=== PATIENT | female | born 1965 | race Caucasian/White ===

== ENCOUNTER 2023-12-14 10:45 | Inpatient (IN) | payer BC ==
[~2023-12-14] VITALS: Ht 165.1 cm; Wt 91.0 kg
[2023-12-14 13:21] LABS: Basophils # (auto) 0 10 ^3/uL (0-0.2); Basophils % (auto) 0.7 % (0.0-2.0); Eosinophils # (auto) 0 10 ^3/uL (0-0.8); Eosinophils % (auto) 0.3 % (0.0-7.0); Hematocrit 43.1 % (36.0-46.0); Hemoglobin 14.7 g/dL (12.2-16.2); Lymphocytes # (auto) 2.2 10 ^3/uL (0.4-5.4); Lymphocytes % (auto) 29.3 % (10.0-50.0); Mean Corpuscular Hemoglobin 30.1 pg (28.0-32.0); Mean Corpuscular Hgb Conc. 34.2 g/dL (32.0-36.0); Mean Corpuscular Volume 88.1 fL (80.0-100.0); Monocytes # (auto) 0.3 10 ^3/uL (0-1.3); Monocytes % (auto) 4.3 % (0.0-12.0); Neutrophils # (auto) 4.8 10 ^3/uL (1.6-8.6); Neutrophils % (auto) 65.4 % (37.0-80.0); Platelet Count (auto) 243 10^3/uL (140-450); Red Blood Cells 4.89 10^6/uL (4.0-5.20); Red Cell Distribution Width 15.5 % (11.8-14.3); White Blood Cell 7.4 10^3/uL (4.4-10.8)
[2023-12-14 13:44] LABS: Alanine Aminotransferase 25 U/L (7-40); Albumin 4.7 g/dL (3.2-4.8); Alkaline Phosphatase 63 U/L (46-116); Anion Gap 6 (5-15); Aspartate Aminotransferase 16 U/L (13-40); BUN/Creatinine Ratio 17.1 (10.0-20.0); Bilirubin, Total 0.6 mg/dL (0.2-1.0); Blood Urea Nitrogen 12 mg/dL (9-23); Calcium 9.8 mg/dL (8.7-10.4); Carbon Dioxide 27 mmol/L (20-30); Chloride 106 mmol/L (98-107); Glucose 96 mg/dL (74-106); Potassium 4.3 mmol/L (3.5-5.1); Sodium 139 mmol/L (136-145)
[2023-12-14 14:14] LABS: Urine Bacteria None Seen /hpf (None Seen)
[2023-12-14] MEDS ORDERED: AMLO1TAB23 PO (14:15)
[2023-12-14] MEDS ORDERED: LOSA-534 PO (14:15)
[2023-12-14 14:43] LABS: Urine Blood Negative /uL (Negative); Urine Clarity Clear (Clear); Urine Color Light-Yellow (Yellow); Urine Protein, UAD Negative (Negative); Urine Specific Gravity 1.007 (1.001-1.035); Urine Urobilinogen Normal (Negative); Urine WBC <1 /hpf (0 - 5)
[2023-12-14] MEDS ORDERED: DOCUSATE SOD 100 MG CAP PO PRN (15:45)
[2023-12-14] MEDS ORDERED: MORPHINE SULFATE INJ 2 MG/ml SYRG IV PRN (15:45)
[2023-12-14] MEDS ORDERED: ACETAMINOPHEN 325 MG TAB PO PRN (15:45)
[2023-12-14] MEDS ORDERED: ONDANSETRON HCL 4 MG/2 ML VIAL IV PRN (15:45)
[2023-12-14] MEDS ORDERED: HYDROcodone-ACET 5/325MG TAB PO PRN (15:45)
[2023-12-14] MEDS ORDERED: hydrALAZINE HCL 20 MG/ML VL IV PRN (15:45)
[2023-12-14 16:33] VITALS: BP 139/84; PULSE 78; RESP 15; TEMP 98; O2SAT 97
[2023-12-14] MEDS: LOSARTAN POTASSIUM 50 MG TAB PO SCH (16:40)
[2023-12-14] MEDS ORDERED: SODIUM CHLOR 0.9% PF (SALINE LOCK) 10ML VIAL/SYR IV SCH (22:00)
[2023-12-15] MEDS ORDERED: ENOXAPARIN SOD 40 MG/0.4 ML SYRINGE SC SCH (10:00)
[2023-12-15] MEDS ORDERED: amLODIPine BESYLATE 5 MG TAB PO SCH (10:00)
== END 2023-12-14 19:22 | disposition home or self-care (01) | DRG 305 ==
LOC: ER 10:45 → OVERFLOW 15:38
PROVIDERS: ADMIT Internal Medicine; ATTEND Internal Medicine
DX: I16.0 Hypertensive urgency (principal); Z79.899 Other long term (current) drug therapy
CPT/HCPCS: 36415; 70450; 71045; 80053; 81001; 82962; 85025; 93005; G0378

== ENCOUNTER 2024-03-18 07:01 | Emergency (ER) | payer BC ==
[~2024-03-18] VITALS: Ht 165.1 cm; Wt 91.1 kg
[~2024-03-18 07:01] MED LIST: AMLO1TAB23 PO; LOSA-534 PO
[2024-03-18 07:33] VITALS: BP 129/69; PULSE 105; RESP 16; TEMP 100.6; O2SAT 95
[2024-03-18] MEDS ORDERED: SUMAtriptan SUCCINATE 6 MG/0.5 ML VL SC ONE (08:00)
[2024-03-18] MEDS ORDERED: cefTRIAXone SOD 1,000 MG VL IM ONE (08:00)
--- NOTE | 2024-03-18 08:00 | ED.PDOC ---
History of Present Illness HPI Comments A 58Y F WITH PMHX HLD PRESENTS TO ED FOR CHIEF COMPLAINT FLU LIKE SYMPTOMS X2DAYS. PT'S SYMPTOMS INCLUDE COUGH, CONGESTION, BODY ACHES, SORE THROAT, EAR PAIN, AND MIGRAINE. PT DENIES CHEST PAIN AND SOB. PATIENT IS ALERT, ORIENTED X 4, AND HAS STEADY GAIT. NO OTHER SYMPTOMS REPORTED AT THIS TIME OF CARE. Chief Complaint: Flu like Time Seen by MD: 07:41 Primary Care Provider: ROGELIO ANTONIO Reviewed Notes: Medications, Allergies Allergies: Coded Allergies: NO KNOWN ALLERGIES (Unverified , 10/01/11) Home Meds Active Scripts Sumatriptan Succinate (Imitrex) 50 Mg Tab, 1 TAB PO UD, #9 TAB 1 Refill Prov:OBINNA SNIDER 03/18/24 Promethazine-Dm (Promethazine Dm 6.25-15 mg/5Ml) 1 Mary Mary, 5 ML PO TID, #150 ML Prov:OBINNA SNIDER 03/18/24 Azithromycin (Azithromycin) 500 Mg Tab, 1 TAB PO DAILY, #5 TAB Prov:OBINNA SNIDER 03/18/24 Amlodipine Besylate (Amlodipine Besylate) 10 Mg Tab, 10 MG PO DAILY for 30 Days, #30 TAB Prov:CHARLIE ALCARAZ MD 12/14/23 Losartan Potassium (Losartan Potassium) 50 Mg Tab, 50 MG PO DAILY for 30 Days, #30 TAB Prov:CHARLIE ALCARAZ MD 12/14/23 Information Source: Patient Mode of Arrival: Ambulatory Severity: Mild Timing: Days Duration: Since onset Prehospital treatment: None Medication Refill: For: Other (COUG, RIGHT EAR PAIN AND THROAT PAIN ) Past Medical History PAST MEDICAL HISTORY: High Lipids Surgical History: Denies all surgeries 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 Family History Family History: Reviewed,noncontributory to illness, Unknown Social History Smoker: Non-Smoker Alcohol: Denies ETOH Use Drugs: Denies Drug Use Lives In: Home Constitutional: reports: others (BODY ACHES); denies: chills, diaphoresis, fatigue, fever, malaise, sweats, weakness EENTM: reports: ear pain, eye pain, nose congestion, throat pain, throat swelling; denies: blurred vision, double vision, ear bleeding, ear discharge, ear drainage, ear ringing, eye redness, hearing loss, mouth pain, mouth swelling, nasal discharge, nose bleeding, nose pain, photophobia, tearing, voice changes, others Respiratory: reports: cough; denies: hemoptysis, orthopnea, SOB at rest, shortness of breath, SOB with excertion, stridor, wheezing, others Cardiovascular: denies: chest pain, dizzy spells, diaphoresis, Dyspnea on exertion, edema, irregular heart beat, left arm pain, lightheadedness, palp itations, PND, syncope, others Gastrointestinal: denies: abdomen distended, abdominal pain, blood streaked bowels, constipated, diarrhea, dysphagia, difficulty swallowing, hematemesis, melena, nausea, poor appetite, poor fluid intake, rectal bleeding, rectal pain, vomiting, others Genitourinary: denies: abnormal vagina bleeding, burning, dyspareunia, dysuria, flank pain, frequency, hematuria, incontinence, pain, , vagina discharge, urgency, others Neurological: reports: headache; denies: dizziness, fainting, left sided numbness, left sided weakness, numbness, paresthesia, pre-existing deficit, right sided numbness, right sided weakness, seizure, speech problems, tingling, tremors, weakness, others Musculoskeletal: reports: muscle pain; denies: back pain, gout, joint pain, joint swelling, muscle stiffness, neck pain, others Integumetry: denies: bruises, change in color, change in hair/nails, dryness, laceration, lesions, lumps, rash, wounds, others Allergic/Immunocompromised: denies: Difficulty Healing, Frequent Infections, Hives, Itching, others Hematologic/Lymphatic: denies: anemia, blood clots, easy bleeding, easy bruising, swollen glands, others Endocrine: denies: excessive hunger, excessive sweating, excessive thirst, excessive urination, flushing, intolerance to cold, intolerance to heat, unexplained weight gain, unexplained weight loss, others Psychiatric: reports: anxiety; denies: bipolar disorder, depression, hopeless, panic disorder, schizophrenia, sleepless, suicidal, others All Other Systems: Reviewed and Negative Physical Exam General Appearance: No Apparent Distress, Obese, Other (ANXIOUS ) HEENT: PERRL/EOMI, Pharyngeal Erythema (TONSILLAR SWELLING, NO EXUDATES. ), TM Abnormal (R) (ERYTHEMA AND DULL WITH MILD EFFUSION OF RIGHT TM. ) Neck: Full Range of Motion, Non-Tender, Normal, Normal Inspection Respiratory: Chest Non-Tender, Expiration, No Accessory Muscle Use, No Respiratory Distress, Rhonchi Cardiovascular: No Edema, No JVD, No Murmur, No Gallop, Normal Peripheral Pu lses, Regular Rate/Rhythm Breast Exam: Deferred Gastrointestinal: No Organomegaly, Non Tender, No Pulsatile Mass, Normal Bowel Sounds, Soft Genitalia: Deferred Pelvic: Deferred Rectal: Deferred Extremities: No calf tenderness, Normal capillary refill, Normal inspection, Normal range of motion, Non-tender, No pedal edema Musculoskeletal : Apperance: Normal Neurologic: Alert, 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 Was a procedure done?: No Differential Dx Considerations may include: AOM OF RIGHT EAR, ACUTE TONSILLITIS, PNEUMONIA X-Ray, Labs, Meds, VS Vital Signs Date Time Temp Pulse Resp B/P (MAP) Pulse Ox O2 Delivery O2 Flow Rate FiO2 03/18/24 07:33 100.6 105 16 129/69 (89) 95 100.6 03/18/24 07:33 105 16 95 Room Air 03/18/24 07:21 100.6 105 16 129/69 (89) 95 Current Medications Medications (Trade) Dose Ordered Sig/Elvis Route Start Time Stop Time Status Last Admin Ceftriaxone Sodium 50 ml @ 100 mls/hr ONCE ONCE IV 03/18/24 08:00 03/18/24 08:23 DC 03/18/24 08:07 Ketorolac Tromethamine (Toradol Injection) 30 mg ONCE ONCE IV 03/18/24 08:00 03/18/24 08:01 DC 03/18/24 08:08 [place] [address] Ph: [phone] DIAGNOSTIC IMAGING Diagnostic Imaging Report : [id number] Signed PATIENT: MARTINEZ ROWLEY ACCT: [id number] UNIT: [id number] : 1965 LOC: ER ROOM / BED: / AGE / SEX: 58 / F ADM STATUS: REG ER SERVICE 6 ORDERING PHYSICIAN: OBINNA SNIDER PROCEDURE(s): CXR2 - CHEST TWO VIEWS ROUTINE REASON: COUGH ORDER NUMBER(s): [id number], ACCESSION NUMBER(s): [id number] CLINICAL INFORMATION: 58 years old, Female; COUGH. TECHNIQUE: Frontal and lateral chest radiographs were obtained. COMPARISON: Prior radiograph dated 12/14/2023. FINDINGS: Lungs: Opacities in the lung bases, right slightly greater than left, may be due to atelectasis and/or developing consolidation. Cardiac: Heart size is within normal limits. Pulmonary vasculature: Unremarkable Mediastinum/omar: Diyx-hr-[id number] atherosclerotic calcification of the aortic arch. Bones: No evidence of acute osseous abnormality. Other: No other significant finding. IMPRESSION: Bibasilar opacities, right greater than left, likely atelectasis and/ or developing consolidation in the appropriate clinical setting. ATED BY: CHRIS GRIFFIN DO DICTATED DATE/TIME: 03/18/24801 SIGNED BY: CHRIS GRIFFIN DO SIGNED DATE/TIME: 03/18/24801 CC: X-Ray, Labs, Meds, VS Comment COURSE: EXTERNAL MEDICAL RECORDS REVIEWED: [NONE] INDEPENDENT HISTORIANS: [NONE] SOCIAL DETERMINANTS OF HEALTH: [NONE] LABS ORDERED: NONE REVIEWED AND INTERPRETED RESULTS: NONE IMAGING ORDERED: CXR NORMAL CHEST X RAY RESULT: INTERPRETED BY ME. NO ACUTE FINDINGS. NO PNEUMONIA. NO CONSOLIDATIONS. NO INFILTRATES. PENDING RADIOLOGIST REPORT. TREATMENTS ORDERED: KETOROLAC INJ 30MG IV, CEFTRIAXONE IV PROCEDURES PERFORMED: NONE CRITICAL CARE TIME: NONE I HAVE DISCUSSED THE PATIENT WITH THE ATTENDING PHYSICIAN DR. SHERYL QUESADA AND HE AGREES WITH THE PATIENT'S PLAN OF CARE AND DISPOSITION. GIVEN THE HISTORY AND PRESENT ILLNESS OF THE PATIENT, AFTER REVIEWING LABS, IMAGING, AND COURSE OF TREATMENT ADMINISTERED DURING THEIR ED VISIT, THERE IS LOW SUSPICION FOR RED FLAG FINDINGS. BASED ON HISTORY OF PRESENT ILLNESS, AND PHYSICAL EXAM, PATIENT WILL BE DISCHARGED HOME. DISCUSSED PLAN FOR DISCHARGE HOME WITH RX. MEDICATION WARNINGS GIVEN. SHARED DECISION MAKING: DISCUSSED WITH PATIENT THAT THEIR WORKUP WAS NORMAL. PATIENT INSTRUCTED TO FOLLOW UP WITH PRIMARY CARE PROVIDER IN 1-2 DAYS FOR RE-EVALUATION OF SYMPTOMS. PATIENT VERBALIZES UNDERSTANDING TO RETURN TO ED FOR NEW OR WORSENING SYMPTOMS OR IF FOLLOW UP WITH PCP CANNOT BE OBTAINED. PATIENT FEELS COMFORTABLE GOING HOME AT THIS TIME. ALL QUESTIONS ADDRESSED AT TIME OF DISCHARGE. Time of 1ST Reevaluation: 08:30 Reevaluation 1ST: Improved Patient Education/Counseling: Diagnosis, Treatment, Need For Follow Up Family Education/Counseling: Diagnosis, Treatment, Need For Follow Up Medical Screening: No EMC Exist At This Time Departure 1 Departure Time of Disposition: 08:30 Impression: Primary Impression: Acute otitis media with effusion of right ear Additional Impressions: Acute tonsillitis Qualified Codes: J03.90 - Acute tonsillitis, unspecified Acute bronchitis Qualified Codes: J20.9 - Acute bronchitis, unspecified Disposition: 01 HOME / SELF CARE / HOMELESS Condition: Stable Additional Instructions: INSTRUCTIONS: FOLLOW-UP WITH PCP IN 1 TO 2 DAYS. TAKE MEDICATIONS PRESCRIBED. RETURN TO ED FOR ANY NEW OR WORSENING SYMPTOMS e-Prescriptions Levofloxacin Hemihydrate (LEVAQUIN 500 MG) 500 Mg Tab 1 TAB PO DAILY, #7 TAB Prov: OBINNA SNIDER 03/18/24 Sumatriptan Succinate (Imitrex) 50 Mg Tab 1 TAB PO UD, #9 TAB 1 Refill Prov: OBINNA SNIDER 03/18/24 Promethazine-Dm (Promethazine Dm 6.25-15 mg/5Ml) 1 Mary Mary 5 ML PO TID, #150 ML Prov: OBINNA SNDIER 03/18/24 Azithromycin (Azithromycin) 500 Mg Tab 1 TAB PO DAILY, #5 TAB Prov: OBINNA SNIDER 03/18/24 Discharged With: Self, Relative Critical Care Note Critical Care Time?: No Stability Stability form required: No Heart Score Heart Score: Heart Score Response (Comments) Value History N/A 0 EKG N/A 0 Age N/A 0 Risk Factors N/A 0 Troponin N/A 0 Total 0 I personally scribed for OBINNA SNIDER ([email or web address]) on 03/18/24 at 08:00. Electronically submitted by Susanne Serrano ([email or web address]). I personally scribed for OBINNA SNIDER ([email or web address]) on 03/18/24 at 08:11. Electronically submitted by Susanne Serrano ([facility]). I personally scribed for OBINNA SNIDER ([email or web address]) on 03/18/24 at 08:12. Electronically submitted by Susanne Serrano ([facility]). OBINNA SNIDER Mar 18, 2024 08:00
--- NOTE | 2024-03-18 08:05 | DVH ---
CLINICAL INFORMATION: 58 years old, Female; COUGH. TECHNIQUE: Frontal and lateral chest radiographs were obtained. COMPARISON: Prior radiograph dated 12/14/2023. FINDINGS: Lungs: Opacities in the lung bases, right slightly greater than left, may be due to atelectasis and/o r developing consolidation. Cardiac: Heart size is within normal limits. Pulmonary vasculature: Unremarkable Mediastinum/omar: [id number] atherosclerotic calcification of the aortic arch. Bones: No evidence of acute osseous abnormality. Other: No other significant finding. IMPRESSION: Bibasilar opacities, right greater than left, likely atelectasis and/ or developing consolidation in the appropriate clinical setting.
[2024-03-18] MEDS: cefTRIAXone 1GM/50ML D5W 50 ML IV ONE (08:07)
[2024-03-18] MEDS: KETOROLAC TROMETH 30 MG/ML 1ML VIAL IV ONE (08:08)
[2024-03-18] MEDS ORDERED: PROM1SOL4 PO (08:12)
[2024-03-18] MEDS ORDERED: SUMA50TA2 PO (08:12)
[2024-03-18] MEDS ORDERED: AZIT500T66 PO (08:12)
[2024-03-18] MEDS ORDERED: LEVO500T91 PO (08:28)
== END 2024-03-18 08:24 | disposition home or self-care (01) ==
LOC: ER 07:01
DX: H65.191 Other acute nonsuppurative otitis media, right ear (principal); J03.90 Acute tonsillitis, unspecified; E78.5 Hyperlipidemia, unspecified; J20.9 Acute bronchitis, unspecified; Z79.899 Other long term (current) drug therapy
CPT/HCPCS: 71046; 96365; 96375; 99284; J0696; J1885

== ENCOUNTER 2024-04-04 02:25 | Emergency (ER) | payer BC ==
[~2024-04-04] VITALS: Ht 165.1 cm; Wt 92.5 kg
[~2024-04-04 02:25] MED LIST changes: +AZIT500T66 PO; +LEVO500T91 PO; +PROM1SOL4 PO; +SUMA50TA2 PO
--- NOTE | 2024-04-04 04:07 | ED.PDOC ---
GI ASSESSMENT HPI Comments 58 year old female presents to the ED with a chief complaint of RUQ pain onset yesterday around 21:00. Patient states she was trying to sleep when she began experiencing RUQ pain, radiates to her back as well as nausea. PMHx of HLD. Denies vomiting, diarrhea, constipation, fever, chills, headache, chest pain, dizziness, shortness of breath. No other symptoms or modifying factors present at this time. Chief Complaint: Abdominal Pain Time Seen by MD: 03:46 Primary Care Provider: ROGELIO ANTONIO Reviewed Notes: Medications, Allergies Allergies: Coded Allergies: NO KNOWN ALLERGIES (Unverified , 10/01/11) Home Meds Active Scripts Gabapentin (Once-Daily) (Gabapentin) 300 Mg Tab, 300 MG PO Q6HP PRN for 7 Days, #28 TAB Prov:SRIDEVI TEJEDA MD 04/04/24 Ondansetron HCl (Ondansetron Hydrochloride) 8 Mg Tab, 8 MG PO Q6HP PRN for 7 Days, #28 TAB Prov:SRIDEVI TEJEDA MD 04/04/24 Levofloxacin Hemihydrate (LEVAQUIN 500 MG) 500 Mg Tab, 1 TAB PO DAILY, #7 TAB Prov:OBINNA SNIDER 03/18/24 Sumatriptan Succinate (Imitrex) 50 Mg Tab, 1 TAB PO UD, #9 TAB 1 Refill Prov:OBINNA SNIDER 03/18/24 Promethazine-Dm (Promethazine Dm 6.25-15 mg/5Ml) 1 Mary Mary, 5 ML PO TID, #150 ML Prov:OBINNA SNIDER 03/18/24 Azithromycin (Azithromycin) 500 Mg Tab, 1 TAB PO DAILY, #5 TAB Prov:OBINNA SNIDER 03/18/24 Amlodipine Besylate (Amlodipine Besylate) 10 Mg Tab, 10 MG PO DAILY for 30 Days, #30 TAB Prov:CHARLIE ALCARAZ MD 12/14/23 Losartan Potassium (Losartan Potassium) 50 Mg Tab, 50 MG PO DAILY for 30 Days, #30 TAB Prov:CHARLIE ALCARAZ MD 12/14/23 Information Source: Patient Mode of Arrival: Ambulatory Timing: Hours Duration: Since onset Prehospital treatment: None Quality: Sharp Vomitus: None Severity: Moderate Recent: None Recent Hx of: None Pain Location: RUQ Associated sign and symptoms: Nausea, Abdominal Pain (RUQ) Past Medical History PAST MEDICAL HISTORY: High Lipids Surgical History: Denies all surgeries 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 Family History Family History: Reviewed,noncontributory to illness, Unknown Social History Smoker: Non-Smoker Alcohol: Denies ETOH Use Drugs: Denies Drug Use Lives In: Home Constitutional: denies: chills, diaphoresis, fatigue, fever, malaise, sweats, weakness, others EENTM: denies: blurred vision, double vision, ear bleeding, ear discharge, ear drainage, ear pain, ear ringing, eye pain, eye redness, hearing loss, mouth pain, mouth swelling, nasal discharge, nose bleeding, nose congestion, nose pain, photophobia, tearing, throat pain, throat swelling, voice changes, others Respiratory: denies: cough, hemoptysis, orthopnea, SOB at rest, shortness of breath, SOB with excertion, stridor, wheezing, others Cardiovascular: denies: chest pain, dizzy spells, diaphoresis, Dyspnea on exertion, edema, irregular heart beat, left arm pain, lightheadedness, p alpitations, PND, syncope, others Gastrointestinal: reports: abdominal pain (RUQ), nausea; denies: abdomen distended, blood streaked bowels, constipated, diarrhea, dysphagia, difficulty swallowing, hematemesis, melena, poor appetite, poor fluid intake, rectal bleeding, rectal pain, vomiting, others Genitourinary: denies: abnormal vagina bleeding, burning, dyspareunia, dysuria, flank pain, frequency, hematuria, incontinence, pain, , vagina discharge, urgency, others Neurological: denies: dizziness, fainting, headache, left sided numbness, left sided weakness, numbness, paresthesia, pre-existing deficit, right sided numbness, right sided weakness, seizure, speech problems, tingling, tremors, weakness, others Musculoskeletal: reports: back pain; denies: gout, joint pain, joint swelling, muscle pain, muscle stiffness, neck pain, others Integumetry: denies: bruises, change in color, change in hair/nails, dryness, laceration, lesions, lumps, rash, wounds, others Allergic/Immunocompromised: denies: Difficulty Healing, Frequent Infections, Hives, Itching, others Hematologic/Lymphatic: denies: anemia, blood clots, easy bleeding, easy bruising, swollen glands, others Endocrine: denies: excessive hunger, excessive sweating, excessive thirst, excessive urination, flushing, intolerance to cold, intolerance to heat, unexplained weight gain, unexplained weight loss, others Psychiatric: denies: anxiety, bipolar disorder, depression, hopeless, panic disorder, schizophrenia, sleepless, suicidal, others All Other Systems: Reviewed and Negative Physical Exam General Appearance: Mild Distress, Normal HEENT: Normal ENT Inspection, Pharynx Normal, TMs Normal Neck: Full Range of Motion, Non-Tender, Normal, Normal Inspection Respiratory: Chest Non-Tender, Lungs Clear, No Accessory Muscle Use, No Respiratory Distress, Normal Breath Sounds Cardiovascular: No Edema, No JVD, No Murmur, No Gallop, Normal Peripheral Pulses, Regular Rate/Rhythm Breast Exam: Deferred Gastrointestinal: No Organomegaly, Non Tender, No Pulsatile Mass, Normal Bowel Sounds, Soft Genitalia: Deferred Pelvic: Deferred Rectal: Deferred Extremities: No calf tenderness, Normal capillary refill, Normal inspection, Normal range of motion, Non-tender, No pedal edema Musculoskeletal : Apperance: Normal Neurologic: Alert, guitar repairer 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 Was a procedure done?: No GI differential Dx Differential Diagnosis: Bowel Obstruction, Cholecystitis, Constipation, Diverticular disease, Gastritis/PUD, Gastroenteritis, Pancreatitis, Other X-Ray, Labs, Meds, VS Vital Signs Date Time Temp Pulse Resp B/P (MAP) Pulse Ox O2 Delivery O2 Flow Rate FiO2 04/04/24 08:06 97.8 73 20 146/93 (110) 96 97.8 04/04/24 04:41 97.7 70 18 156/96 (116) 97 97.7 04/04/24 04:41 70 18 97 Room Air 04/04/24 02:52 97.7 72 17 153/81 (105) 96 Lab Test 04/04/24 04:27 04/04/24 03:50 Range/Units White Blood Count 9.4 4.4-10.8 10^3/uL Red Blood Count 4.87 4.0-5.20 10^6/uL Hemoglobin 14.2 12.2-16.2 g/dL Hematocrit 42.8 36.0-46.0 % Mean Corpuscular Volume 87.9 80.0-100.0 fL Mean Corpuscular Hemoglobin 29.1 28.0-32.0 pg Mean Corpuscular Hemoglobin Concent 33.2 32.0-36.0 g/dL Red Cell Distribution Width 15.6 H 11.8-14.3 % Platelet Count 314 140-450 10^3/uL Mean Platelet Volume 7.9 6.9-10.8 fL Neutrophils (%) (Auto) 59.1 37.0-80.0 % Lymphocytes (%) (Auto) 31.6 10.0-50.0 % Monocytes (%) (Auto) 6.7 0.0-12.0 % Eosinophils (%) (Auto) 1.8 0.0-7.0 % Basophils (%) (Auto) 0.8 0.0-2.0 % Neutrophils # (Auto) 5.5 1.6-8.6 10 ^3/uL Lymphocytes # (Auto) 3.0 0.4-5.4 10 ^3/uL Monocytes # (Auto) 0.6 0-1.3 10 ^3/uL Eosinophils # (Auto) 0.2 0-0.8 10 ^3/uL Basophils # (Auto) 0.1 0-0.2 10 ^3/uL Nucleated Red Blood Cells 0.0 % Sodium Level 139 136-145 mmol/L Potassium Level 4.3 3.5-5.1 mmol/L Chloride Level 105 98-107 mmol/L Carbon Dioxide Level 28 20-31 mmol/L Anion Gap 6 5-15 Blood Urea Nitrogen 20 9-23 mg/dL Creatinine 0.79 0.550-1.02 mg/dL Glomerular Filtration Rate Calc 86 >90 mL/min BUN/Creatinine Ratio 25.3 H 10.0-20.0 Serum Glucose 110 H 74-106 mg/dL Calcium Level 10.6 H 8.7-10.4 mg/dL Total Bilirubin 0.6 0.2-1.0 mg/dL Aspartate Amino Transferase (AST) 16 13-40 U/L Alanine Aminotransferase (ALT) 26 7-40 U/L Alkaline Phosphatase 69 46-116 U/L Total Protein 6.8 5.7-8.2 g/dL Albumin 4.6 3.2-4.8 g/dL Lipase 38 12-53 U/L Urine Color Light-yellow Yellow Urine Clarity Clear Clear Urine pH 5.5 5.0-9.0 Urine Specific [place] 1.005 1.001-1.035 Urine Protein Negative Negative Urine Ketones Negative Negative Urine Blood Negative Negative /uL Urine Nitrite Negative Negative Urine Bilirubin Negative Negative Urine Urobilinogen Normal Negative mg/dL Urine Leukocyte Esterase Negative Negative /uL Urine RBC <1 0 - 4 /hpf Urine WBC 2 0 - 5 /hpf Urine Squamous Epithelial Cells None seen <5 /hpf Urine Bacteria None seen None Seen /hpf Urine Glucose Normal Normal mg/dL [place] [address] Ph: [phone] DIAGNOSTIC IMAGING Diagnostic Imaging Report : [id number] Signed PATIENT: MARTINEZ ROWLEY ACCT: [id number] UNIT: [id number] : 1965 LOC: ER ROOM / BED: / AGE / SEX: 58 / F ADM STATUS: REG ER SERVICE [id number] ORDERING PHYSICIAN: SRIDEVI TEJEDA MD PROCEDURE(s): ABPLIV - CT AB PEL WITH IV CON ONLY REASON: abd pain ORDER NUMBER(s): [id number], ACCESSION NUMBER(s): [id number] Exam: CT CT AB PEL WITH IV CON ONLY History: abd pain Comparison Study: None Technique: Multidetector spiral CT of the abdomen was performed from lung bases to pubic symphysis. Imaging was performed without IV contrast. Axial, coronal and sagittal multiplanar reformats were obtained from the axial data set by the technologist. Radiation Dose : 1. Abdomen/Pelvis: CTDIvol 24 mGy, DLP 1304.92 mGy*cm. Findings: Evaluation of solid organs is limited due to lack of intravenous contrast use. Lung Bases: No acute or significant lung base finding. Normal heart size. No pleural or pericardial effusion. Liver: Mild hepatic steatosis. Gallbladder and Biliary Tree: Unremarkable Spleen: Unremarkable Pancreas: The pancreas is grossly normal in appearance. Adrenal Glands: Unremarkable Kidneys: Kidneys are grossly normal without calculi or hydronephrosis. Bladder: Grossly unremarkable for degree of distention. Bowel: The stomach is grossly normal in appearance. Moderate colonic stool. Mild bowel wall thickening of the descending colon. Mild bowel wall thickening of the terminal ileum. The appendix is not visualized; however, no secondary findings of acute appendicitis identified. Ascites: Absent Lymphadenopathy: No mesenteric, retroperitoneal or periportal lymphadenopathy. Abdominal Wall and Mesentery: Unremarkable. Vasculature: The visualized abdominal aorta is normal in size and caliber. There is extensive atherosclerotic calcification of the aorta and its branches. Evaluation of abdominal and pelvic vessels is limited due to lack of intravenous contrast. Pelvic Organs: Unremarkable Musculoskeletal: No aggressive focal bony lesions, acute fractures or dislocat ion. IMPRESSION: Moderate volume colonic stool. Mild bowel wall thickening of the descending colon; possibly colitis. Mild bowel wall thickening of the terminal ileum which may be related to underdistention or may represent a component of inflammatory bowel disease. Clinical correlation advised. Radiation optimization: All CT scans at this facility use at least one of these dose optimization techniques: automated exposure control mA and/or kV adjustment per patient size (includes targeted exams where dose is matched to clinical indication) or iterative reconstruction. ATED BY: EMIL KINNEY MD DICTATED DATE/TIME: 04/04/24539 SIGNED BY: EMIL KINNEY MD SIGNED DATE/TIME: 04/04/24539 CC: Time of 1ST Reevaluation: 04:16 Reevaluation 1ST: Unchanged Time of 2ND Reevaluation: 06:01 Reevaluation 2ND: Improved Patient Education/Counseling: Diagnosis, Treatment, Prognosis Family Education/Counseling: No Family Present Additional Information I reviewed the following notes from patient's past medical encounters: The following tests were ordered, and results were reviewed by me: CBC, CMP, LIPASE, UA, CT AB PEL WITH IV CONTRAST, US GALLBLADDER I reviewed and agreed with the following test results read by other providers: CT AB PEL WITH IV CONTRAST, US GALLBLADDER I discussed treatment and results with medical personnel and: patient Departure 1 Departure Time of Disposition: 06:01 Impression: Primary Impression: Abdominal pain Disposition: HOME / SELF CARE / HOMELESS Condition: Stable e-Prescriptions Gabapentin (Once-Daily) (Gabapentin) 300 Mg Tab 300 MG PO Q6HP PRN for 7 Days, #28 TAB Prov: SRIDEVI TEJEDA MD 04/04/24 Ondansetron HCl (Ondansetron Hydrochloride) 8 Mg Tab 8 MG PO Q6HP PRN for 7 Days, #28 TAB Prov: SRIDEVI TEJEDA MD 04/04/24 Discharged With: Self Critical Care Note Critical Care Time?: No Stability Stability form required: No I personally scribed for SRIDEVI TEJEDA MD ([email or web address]) on 04/04/24 at 04:07. Electronically submitted by Brunilda Carlisle ([email or web address]). I personally scribed for SRIDEVI TEJEDA MD ([email or web address]) on 04/04/24 at 04:50. Electronically submitted by Brunilda Carlisle ([email or web address]). I personally scribed for SRIDEVI TEJEDA MD ([email or web address]) on 04/04/24 at 05:49. Electronically submitted by Brunilda Carlisle ([email or web address]). SRIDEVI TEJEDA MD Apr 04, 2024 04:07
[2024-04-04 04:19] LABS: Urine Bacteria None Seen /hpf (None Seen)
[2024-04-04 04:35] LABS: Urine Blood Negative /uL (Negative); Urine Clarity Clear (Clear); Urine Color Light-Yellow (Yellow); Urine Protein, UAD Negative (Negative); Urine Specific Gravity 1.005 (1.001-1.035); Urine Squamous Epithelial Cell None Seen /hpf (<5); Urine Urobilinogen Normal (Negative); Urine WBC 2 /hpf (0 - 5); Urine pH 5.5 (5.0-9.0)
[2024-04-04 04:50] LABS: Basophils # (auto) 0.1 10 ^3/uL (0-0.2); Basophils % (auto) 0.8 % (0.0-2.0); Eosinophils # (auto) 0.2 10 ^3/uL (0-0.8); Eosinophils % (auto) 1.8 % (0.0-7.0); Hematocrit 42.8 % (36.0-46.0); Hemoglobin 14.2 g/dL (12.2-16.2); Lymphocytes % (auto) 31.6 % (10.0-50.0); Mean Corpuscular Hemoglobin 29.1 pg (28.0-32.0); Mean Corpuscular Hgb Conc. 33.2 g/dL (32.0-36.0); Mean Corpuscular Volume 87.9 fL (80.0-100.0); Monocytes # (auto) 0.6 10 ^3/uL (0-1.3); Monocytes % (auto) 6.7 % (0.0-12.0); Neutrophils # (auto) 5.5 10 ^3/uL (1.6-8.6); Neutrophils % (auto) 59.1 % (37.0-80.0); Platelet Count (auto) 314 10^3/uL (140-450); Red Blood Cells 4.87 10^6/uL (4.0-5.20); Red Cell Distribution Width 15.6 % (11.8-14.3); White Blood Cell 9.4 10^3/uL (4.4-10.8)
[2024-04-04] MEDS: IOHEXOL 300 MG/ML 100ML BOTTLE IJ ONE (04:57)
[2024-04-04 05:00] LABS: Alanine Aminotransferase 26 U/L (7-40); Albumin 4.6 g/dL (3.2-4.8); Alkaline Phosphatase 69 U/L (46-116); Anion Gap 6 (5-15); Aspartate Aminotransferase 16 U/L (13-40); BUN/Creatinine Ratio 25.3 (10.0-20.0); Blood Urea Nitrogen 20 mg/dL (9-23); Carbon Dioxide 28 mmol/L (20-31); Chloride 105 mmol/L (98-107); Lipase 38 U/L (12-53); Potassium 4.3 mmol/L (3.5-5.1); Sodium 139 mmol/L (136-145)
[2024-04-04 05:01] LABS: Bilirubin, Total 0.6 mg/dL (0.2-1.0); Total Protein 6.8 g/dL (5.7-8.2)
[2024-04-04 05:10] LABS: Calcium 10.6 mg/dL (8.7-10.4); Glucose 110 mg/dL (74-106)
--- NOTE | 2024-04-04 05:44 | DVH ---
Exam: CT CT AB PEL WITH IV CON ONLY History: abd pain Comparison Study: None Technique: Multidetector spiral CT of the abdomen was performed from lung bases to pubic symphysis. Imaging was performed without IV contrast. Axial, coronal and sagittal multiplanar reformats were ob tained from the axial data set by the technologist. Radiation Dose : 1. Abdomen/Pelvis: CTDIvol 24 mGy, DLP 1304.92 mGy*cm. Findings: Evaluation of solid organs is limited due to lack of intravenous contrast use. Lung Bases: No acute or significant lung base finding. Normal heart size. No pleural or pericardial effusion. Liver: Mild hepatic steatosis. Gallbladder and Biliary Tree: Unremarkable Spleen: Unremarkable Pancreas: The pancreas is grossly normal in appearance. Adrenal Glands: Unremarkable Kidneys: Kidneys are grossly normal without calculi or hydronephrosis. Bladder: Grossly unremarkable for degree of distention. Bowel: The stomach is grossly normal in appearance. Moderate colonic stool. Mild bowel wall thickenin g of the descending colon. Mild bowel wall thickening of the terminal ileum. The appendix is not vis ualized; however, no secondary findings of acute appendicitis identified. Ascites: Absent Lymphadenopathy: No mesenteric, retroperitoneal or periportal lymphadenopathy. Abdominal Wall and Mesentery: Unremarkable. Vasculature: The visualized abdominal aorta is normal in size and caliber. There is extensive athero sclerotic calcification of the aorta and its branches. Evaluation of abdominal and pelvic vessels is limited due to lack of intravenous contrast. Pelvic Organs: Unremarkable Musculoskeletal: No aggressive focal bony lesions, acute fractures or dislocation. IMPRESSION: Moderate volume colonic stool. Mild bowel wall thickening of the descending colon; possibly colitis. Mild bowel wall thickening of the terminal ileum which may be related to underdistention or may repre sent a component of inflammatory bowel disease. Clinical correlation advised. Radiation optimization: All CT scans at this facility use at least one of these dose optimization timur hniques: automated exposure control mA and/or kV adjustment per patient size (includes targeted exam s where dose is matched to clinical indication) or iterative reconstruction.
[2024-04-04] MEDS ORDERED: GABA300T4 PO (06:03)
[2024-04-04] MEDS ORDERED: ONDA-180 PO (06:03)
--- NOTE | 2024-04-04 07:38 | DVH ---
CLINICAL INFORMATION: 58 years old, Female; right upper quadrant pain. TECHNIQUE: Grayscale sonographic imaging of the right upper quadrant of the abdomen was performed, a ssisted by color Doppler techniques. COMPARISON: Correlation made to same day CT of the abdomen and pelvis. FINDINGS: The gallbladder wall measures 2.5 mm in thickness, within normal limits. No stones are s een. The common bile duct measures 4.9 mm in diameter, within normal limits. Increased echogenicity of the liver suggesting mild fatty infiltration. Liver measures 16.7 cm in scrap metal burner niocaudal dimension, at the upper limits of normal. The pancreas is obscured by bowel gas. The right kidney measures 9.1 cm. There is no hydronephrosis. Right renal cortical echogenicity an d cortical thickness are within normal limits. IMPRESSION: 1. Mild hepatic steatosis. 2. No sonographic evidence of acute cholecystitis. 3. Additional findings as described above.
[2024-04-04 08:06] VITALS: BP 146/93; PULSE 73; RESP 20; TEMP 97.8; O2SAT 96
== END 2024-04-04 08:05 | disposition home or self-care (01) ==
LOC: ER 02:25
DX: R10.11 Right upper quadrant pain (principal); E78.5 Hyperlipidemia, unspecified; Z79.899 Other long term (current) drug therapy
CPT/HCPCS: 36415; 74177; 76705; 80053; 81001; 83690; 85025; 99285; Q9967